=== PATIENT | female | born 2000 | race Caucasian/White ===

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

== ENCOUNTER → 2020-08-25 | Outpatient (CLI) | payer BC | LOC: LABNPT 14:26 | PROVIDERS: ATTEND Family Medicine | DX: Z11.3 Encounter for screening for infections with a predominantly sexual mode of transmission (principal) | CPT/HCPCS: 87491; 87591 ==

== ENCOUNTER 2022-07-15 06:31 | Inpatient (IN) | payer BC, MEDICAID ==
[~2022-07-15] VITALS: Ht 170.2 cm; Wt 101.1 kg
[2022-07-15] VITALS (37 sets, daily range): BP systolic 106–134; BP diastolic 59–84
[2022-07-15] MEDS: D5 LR IV SOLUTION 1,000 ML IV SCH ×3 (07:45→20:58)
[2022-07-15] MEDS ORDERED: D5 LR IV SOLUTION 1,000 ML IV ONE (07:49)
[2022-07-15 07:51] LABS: BASOPHILS % (AUTO) 0 % (0-10); EOSINOPHILS # (AUTO) 0.2 10^3/uL (0.0-0.3); EOSINOPHILS % (AUTO) 2 % (0-10); HEMATOCRIT 36 % (35-52); HEMOGLOBIN 12.1 g/dL (11.5-16.0); LYMPHOCYTES # (AUTO) 1.4 10^3/uL (1.0-4.0); LYMPHOCYTES % (AUTO) 15 % (12-44); MEAN CORPUSCULAR HEMOGLOBIN 31 pg (25-34); MEAN CORPUSCULAR HGB CONC 34 g/dL (32-36); MEAN CORPUSCULAR VOLUME 91 fL (80-99); MEAN PLATELET VOLUME 11.8 fL (9.0-12.2); MONOCYTES # (AUTO) 0.5 10^3/uL (0.0-1.0); MONOCYTES % (AUTO) 6 % (0-12); NEUTROPHILS # (AUTO) 7.2 10^3/uL (1.8-7.8); NEUTROPHILS % (AUTO) 76 % (42-75); PLATELET COUNT 186 10^3/uL (130-400); WHITE BLOOD COUNT 9.5 10^3/uL (4.3-11.0)
--- NOTE | 2022-07-15 07:57 | History & Physical ---
History and Physical Date Seen by Provider: Jul 15, 2022 Time Seen by Provider: 07:53 This patient is a 22-year-old 1 female who presents at 39+ weeks gestation for labor induction. Her has been uncomplicated. She denies rupture membranes or bleeding. She denies contractions. She does feel baby moving. Her GBS culture after 35 weeks gestation was negative. Allergies none Medications are vitamins Medical social and surgical histories are per the antepartum record HEENT exam is normal Neck is supple no lymphadenopathy no thyromegaly Abdomen is gravid soft nontender nondistended Extremities show no clubbing cyanosis. There is no Homans' sign. Pelvic exam is pending Assessment and plan 39+ weeks gestation admitted for elective induction of labor. We anticipate a vaginal delivery but would be prepared for if needed 39 weeks gestation admitted for elective induction of labor Allergies and Home Medications Patient Home Medication List Home Medication List Reviewed: Yes LUIS A JEAN MD Jul 15, 2022 07:57
[2022-07-15] MEDS: OXYTOCIN PRE-MIX DRIP 500 ML IV SCH (08:14)
--- NOTE | 2022-07-15 17:10 | Progress Note ---
Standard Progress Note Progress Notes/Assess & Plan Date Seen by a Provider: Jul 15, 2022 Time Seen by a Provider: 17:07 Progress/Assessment & Plan Patient has been on Pitocin now since about 8 AM. She is on 40 milliunits/min and has been for almost an hour. She has made little or no cervical change through the day. She denies pain she has no complaints denies discharge or bleeding. monitor shows an reactive category 1 heart rate tracing. We discussed stopping the Pitocin to allow her uterus to rest allow her to eat and drink and shower if she like and then resume Pitocin in the morning for day 2 of a serial labor induction.Patient is agreeable with that plan. Vital Signs Date Time Temp Pulse Resp B/P (MAP) Pulse Ox O2 Delivery O2 Flow Rate FiO2 07/15/22 16:15 99 18 119/72 (88) Room Air 07/15/22 16:00 93 18 120/70 (87) Room Air 07/15/22 15:46 95 18 134/72 (92) Room Air 07/15/22 15:30 95 18 117/77 (90) Room Air 07/15/22 15:14 96 18 115/71 (86) Room Air 07/15/22 15:01 36.6 07/15/22 15:00 18 113/72 (86) Room Air 07/15/22 14:45 90 18 117/71 (86) Room Air 07/15/22 14:30 94 18 122/81 (95) Room Air 07/15/22 14:20 81 18 119/80 (93) Room Air 07/15/22 14:01 93 18 113/69 (84) Room Air 07/15/22 13:44 36.5 07/15/22 13:30 95 18 118/74 (89) Room Air 07/15/22 13:15 83 18 117/71 (86) Room Air 07/15/22 13:01 90 18 122/77 (92) Room Air 07/15/22 12:46 83 18 127/75 (92) Room Air 07/15/22 12:30 89 18 122/83 (96) Room Air 07/15/22 12:15 104 18 115/70 (85) Room Air 07/15/22 12:02 85 18 114/68 (83) Room Air 07/15/22 11:46 18 123/83 (96) Room Air 07/15/22 11:30 100 18 114/75 (88) Room Air 07/15/22 11:20 36.6 07/15/22 11:15 102 18 116/76 (89) Room Air 07/15/22 11:00 100 18 116/73 (87) Room Air 07/15/22 10:46 100 18 113/79 (90) Room Air 07/15/22 10:30 96 18 118/70 (86) Room Air 07/15/22 10:17 90 18 121/70 (87) Room Air 07/15/22 10:00 89 18 121/80 (94) Room Air 07/15/22 09:45 79 18 115/71 (86) Room Air 07/15/22 09:30 36.5 100 18 111/72 (85) Room Air 07/15/22 09:15 108 18 109/62 (78) Room Air 07/15/22 09:02 101 18 117/59 (78) Room Air 07/15/22 08:45 97 18 110/69 (83) Room Air 07/15/22 08:30 104 18 113/65 (81) Room Air 07/15/22 08:16 103 18 119/72 (88) Room Air 07/15/22 07:58 36.5 97 18 98 Room Air 07/15/22 07:58 36.5 97 18 122/73 (89) Room Air Vital signs are stable. Patient is afebrile. The abdomen is benign. Cervical exam per the labor and delivery nurse shows a cervix about 1 cm dilated and about 70 or 80% -1-2 station vertex presentation Assessment and plan 39+ weeks gestation on Pitocin now for over 8 hours and on 40 milliunits a minute or approaching an hour. We will stop the Pitocin allow her uterus to rest allow her to eat and drink and rest tonight and then resume Pitocin in the morning for day 2 of a serial labor induction. Patient understands the increasing potential likelihood for with a longer duration of failure to proceed to the active labor. LUIS A JEAN MD Jul 15, 2022 17:09
[2022-07-15] MEDS ORDERED: ACETAMINOPHEN 500 MG TAB (TYLENOL) PO PRN (17:30)
[2022-07-16] VITALS (54 sets, daily range): BP systolic 107–144; BP diastolic 57–90
[2022-07-16] MEDS: OXYTOCIN PRE-MIX DRIP 500 ML IV SCH (06:04)
--- NOTE | 2022-07-16 07:27 | Progress Note ---
Standard Progress Note Progress Notes/Assess & Plan Date Seen by a Provider: Jul 16, 2022 Time Seen by a Provider: 07:24 Progress/Assessment & Plan Patient has been on Pitocin now since about 8 AM. She is on 40 milliunits/min and has been for almost an hour. She has made little or no cervical change through the day. She denies pain she has no complaints denies discharge or bleeding. monitor shows an reactive category 1 heart rate tracing. We discussed stopping the Pitocin to allow her uterus to rest allow her to eat and drink and shower if she like and then resume Pitocin in the morning for day 2 of a serial labor induction.Patient is agreeable with that plan. Vital Signs Date Time Temp Pulse Resp B/P (MAP) Pulse Ox O2 Delivery O2 Flow Rate FiO2 07/15/22 16:15 99 18 119/72 (88) Room Air 07/15/22 16:00 93 18 120/70 (87) Room Air 07/15/22 15:46 95 18 134/72 (92) Room Air 07/15/22 15:30 95 18 117/77 (90) Room Air 07/15/22 15:14 96 18 115/71 (86) Room Air 07/15/22 15:01 36.6 07/15/22 15:00 18 113/72 (86) Room Air 07/15/22 14:45 90 18 117/71 (86) Room Air 07/15/22 14:30 94 18 122/81 (95) Room Air 07/15/22 14:20 81 18 119/80 (93) Room Air 07/15/22 14:01 93 18 113/69 (84) Room Air 07/15/22 13:44 36.5 07/15/22 13:30 95 18 118/74 (89) Room Air 07/15/22 13:15 83 18 117/71 (86) Room Air 07/15/22 13:01 90 18 122/77 (92) Room Air 07/15/22 12:46 83 18 127/75 (92) Room Air 07/15/22 12:30 89 18 122/83 (96) Room Air 07/15/22 12:15 104 18 115/70 (85) Room Air 07/15/22 12:02 85 18 114/68 (83) Room Air 07/15/22 11:46 18 123/83 (96) Room Air 07/15/22 11:30 100 18 114/75 (88) Room Air 07/15/22 11:20 36.6 07/15/22 11:15 102 18 116/76 (89) Room Air 07/15/22 11:00 100 18 116/73 (87) Room Air 07/15/22 10:46 100 18 113/79 (90) Room Air 07/15/22 10:30 96 18 118/70 (86) Room Air 07/15/22 10:17 90 18 121/70 (87) Room Air 07/15/22 10:00 89 18 121/80 (94) Room Air 07/15/22 09:45 79 18 115/71 (86) Room Air 07/15/22 09:30 36.5 100 18 111/72 (85) Room Air 07/15/22 09:15 108 18 109/62 (78) Room Air 07/15/22 09:02 101 18 117/59 (78) Room Air 07/15/22 08:45 97 18 110/69 (83) Room Air 07/15/22 08:30 104 18 113/65 (81) Room Air 07/15/22 08:16 103 18 119/72 (88) Room Air 07/15/22 07:58 36.5 97 18 98 Room Air 07/15/22 07:58 36.5 97 18 122/73 (89) Room Air Vital signs are stable. Patient is afebrile. The abdomen is benign. Cervical exam per the labor and delivery nurse shows a cervix about 1 cm dilated and about 70 or 80% -1-2 station vertex presentation Assessment and plan 39+ weeks gestation on Pitocin now for over 8 hours and on 40 milliunits a minute or approaching an hour. We will stop the Pitocin allow her uterus to rest allow her to eat and drink and rest tonight and then resume Pitocin in the morning for day 2 of a serial labor induction. Patient understands the increasing potential likelihood for with a longer duration of failure to proceed to the active labor. June 15, 2022 Patient is without complaint. She is ambulating, voiding, tolerating oral intake. She is beginning to feel contractions with Pitocin reinitiated at about 6 AM for day 2 of the serial labor induction. Patient is 39+ weeks gestation. She denies rupture membranes or bleeding. She does feel baby moving. Vital Signs Date Time Temp Pulse Resp B/P (MAP) Pulse Ox O2 Delivery O2 Flow Rate FiO2 07/16/22 06:15 84 18 135/84 (101) Room Air 07/16/22 05:40 36.4 80 18 125/89 (101) Room Air 07/16/22 02:10 36.4 96 18 121/66 (84) 07/15/22 21:25 36.2 98 18 126/79 (95) 100 Room Air 07/15/22 17:00 81 18 133/84 (100) Room Air 07/15/22 16:50 36.1 89 18 128/81 (97) Room Air 07/15/22 16:30 81 18 106/66 (79) Room Air 07/15/22 16:15 99 18 119/72 (88) Room Air 07/15/22 16:00 93 18 120/70 (87) Room Air 07/15/22 15:46 95 18 134/72 (92) Room Air 07/15/22 15:30 95 18 117/77 (90) Room Air 07/15/22 15:14 96 18 115/71 (86) Room Air 07/15/22 15:01 36.6 07/15/22 15:00 18 113/72 (86) Room Air 07/15/22 14:45 90 18 117/71 (86) Room Air 07/15/22 14:30 94 18 122/81 (95) Room Air 07/15/22 14:20 81 18 119/80 (93) Room Air 07/15/22 14:01 93 18 113/69 (84) Room Air 07/15/22 13:44 36.5 07/15/22 13:30 95 18 118/74 (89) Room Air 07/15/22 13:15 83 18 117/71 (86) Room Air 07/15/22 13:01 90 18 122/77 (92) Room Air 07/15/22 12:46 83 18 127/75 (92) Room Air 07/15/22 12:30 89 18 122/83 (96) Room Air 07/15/22 12:15 104 18 115/70 (85) Room Air 07/15/22 12:02 85 18 114/68 (83) Room Air 07/15/22 11:46 18 123/83 (96) Room Air 07/15/22 11:30 100 18 114/75 (88) Room Air 07/15/22 11:20 36.6 07/15/22 11:15 102 18 116/76 (89) Room Air 07/15/22 11:00 100 18 116/73 (87) Room Air 07/15/22 10:46 100 18 113/79 (90) Room Air 07/15/22 10:30 96 18 118/70 (86) Room Air 07/15/22 10:17 90 18 121/70 (87) Room Air 07/15/22 10:00 89 18 121/80 (94) Room Air 07/15/22 09:45 79 18 115/71 (86) Room Air 07/15/22 09:30 36.5 100 18 111/72 (85) Room Air 07/15/22 09:15 108 18 109/62 (78) Room Air 07/15/22 09:02 101 18 117/59 (78) Room Air 07/15/22 08:45 97 18 110/69 (83) Room Air 07/15/22 08:30 104 18 113/65 (81) Room Air 07/15/22 08:16 103 18 119/72 (88) Room Air 07/15/22 07:58 36.5 97 18 98 Room Air 07/15/22 07:58 36.5 97 18 122/73 (89) Room Air I & O 07/16/22 07:00 Intake Total 1000 ml Balance 1000 ml Vital signs are stable. Patient is afebrile. The abdomen is gravid soft and nontender Extremities show no clubbing cyanosis. There is no Homans' sign. Pelvic exam per the labor and delivery nurse showed a cervix 1 cm dilated 60 or 70% effaced. Assessment and plan 39+ week admitted yesterday for labor induction. She failed to demonstrate any significant progress in labor in spite of Pitocin for over 8 hours. She has rested now through the night and we will proceed with day 2 of serial labor induction. We anticipate a vaginal delivery but would be prepared for delivery for or maternal indications LUIS A JEAN MD Jul 16, 2022 07:27
[2022-07-16] MEDS ORDERED: DOCU-143 PO (07:47)
[2022-07-16] MEDS ORDERED: IBUP-1780 PO (07:47)
[2022-07-16] MEDS ORDERED: OXYC1TAB12 PO (07:47)
--- NOTE | 2022-07-16 07:48 | Discharge Inst-Surgical ---
Discharge Inst-Surgical Depart Medication/Instructions New, Converted or Re-Newed RX: Transmitted to Pharmacy Consults/Follow Up Patient Instructions: As directed Orders & Referrals Follow Up Appt: RTC 1 week for incision check. Call to make follow up appt. for patient in 4 weeks. Wound Care: Remove petar, apply benzoin and steri strips. Activity Per routine post instructions. Prescriptions for Percocet Motrin and Colace have been transmitted e lectronically to this patient's pharmacy Diet as tolerated Patient may shower or tub bathe as desired. Continue home meds Activity Activity as Tolerated: No Diet Discharge Diet: No Restrictions LUIS A JEAN MD Jul 16, 2022 07:48
[2022-07-16] MEDS: D5 LR IV SOLUTION 1,000 ML IV SCH ×3 (08:00→14:54)
[2022-07-16] MEDS ORDERED: fentaNYL 2 mcg/ml BUPIVA 0.125 100 ML ONE (12:32)
[2022-07-16] MEDS ORDERED: NALOXONE 0.4 MG/ML 1 ML (NARCAN) VIAL IV PRN ×2 (14:00)
[2022-07-16] MEDS ORDERED: diphenhydrAMINE 50 MG/ML INJ (BENADRYL) IV PRN (14:00)
[2022-07-16] MEDS ORDERED: LACTATED RINGERS 1,000 ML IV SCH (14:00)
[2022-07-16] MEDS ORDERED: METOCLOPRAMIDE INJ 10 MG/2 ML (REGLAN) IV PRN (14:00)
[2022-07-16] MEDS ORDERED: ONDANSETRON 4 MG/2 ML (SDV) Z0FRAN IV PRN (14:00)
[2022-07-16] MEDS ORDERED: fentaNYL 2 mcg/ml BUPIVA 0.125 100 ML EPI SCH (14:00)
[2022-07-16] MEDS ORDERED: LIDOCAINE 1% INJ 10 ML VIAL ONE (15:40)
[2022-07-16] MEDS ORDERED: BENZOCAINE/MENTHOL (DERMOPLAST) 56 ML CAN TP PRN (16:15)
[2022-07-16] MEDS ORDERED: TETANUS,DIPTH,PERTUSS P/F (BOOSTRIX) 0.5 ML VIAL IM ONE (16:15)
[2022-07-16] MEDS ORDERED: KETOROLAC 30 MG/ML VIAL IVP PRN (16:15)
[2022-07-16] MEDS ORDERED: oxyCODONE/APAP 5/325MG (PERCOCET 5) TABLET PO PRN (16:15)
[2022-07-16] MEDS ORDERED: OXYTOCIN PRE-MIX DRIP 500 ML IV SCH (16:15)
[2022-07-16] MEDS ORDERED: ONDANSETRON 4 MG/2 ML (SDV) Z0FRAN IVP PRN (16:15)
[2022-07-16] MEDS ORDERED: METHYLERGONOVINE 0.2 MG/ML (METHERGINE) AMP IM ONE (16:30)
[2022-07-16] MEDS ORDERED: METHYLERGONOVINE 0.2 MG/ML (METHERGINE) AMP ONE (16:31)
[2022-07-16] MEDS: KETOROLAC 30 MG/ML VIAL IVP SCH ×2 (17:45→22:59)
[2022-07-16] MEDS: DOCUSATE SODIUM 100 MG (COLACE) CAP PO SCH (20:32)
[2022-07-17 00:35] VITALS: BP 115/74
[2022-07-17 04:16] VITALS: BP 130/84
[2022-07-17] MEDS: KETOROLAC 30 MG/ML VIAL IVP SCH (04:16)
--- NOTE | 2022-07-17 07:03 | OB Labor & Delivery Record ---
Labor & Delivery This patient delivered on July 16, 2002. Patient delivered by term spontaneous vaginal livery at 39+ weeks gestation a viable female with Apgars of 8 and 9 at 1 and 5 respectively weight of 7 pounds 2 ounces and the time of 1540. The infant was bulb suctioned on delivery the head and did not wish that the repeat umbilical cord was doubly clamped the father cut the cord the baby was passed to mom's abdomen. Cord bloods were obtained placenta delivered spontaneously Neha and was normal with a three-vessel cord. The cervix vagina rectum perineum were examined and found intact. Blood loss was around 250 cc. Sponge needle counts were correct on completion of the procedure. Patient tolerated procedure well remained in the LDR for recovery the baby remained with the mom. LUIS A JEAN MD Jul 17, 2022 07:03
--- NOTE | 2022-07-17 07:04 | Progress Note ---
Standard Progress Note Progress Notes/Assess & Plan Date Seen by a Provider: Jul 17, 2022 Time Seen by a Provider: 07:03 Progress/Assessment & Plan Patient has been on Pitocin now since about 8 AM. She is on 40 milliunits/min and has been for almost an hour. She has made little or no cervical change through the day. She denies pain she has no complaints denies discharge or bleeding. monitor shows an reactive category 1 heart rate tracing. We discussed stopping the Pitocin to allow her uterus to rest allow her to eat and drink and shower if she like and then resume Pitocin in the morning for day 2 of a serial labor induction.Patient is agreeable with that plan. Vital Signs Date Time Temp Pulse Resp B/P (MAP) Pulse Ox O2 Delivery O2 Flow Rate FiO2 07/15/22 16:15 99 18 119/72 (88) Room Air 07/15/22 16:00 93 18 120/70 (87) Room Air 07/15/22 15:46 95 18 134/72 (92) Room Air 07/15/22 15:30 95 18 117/77 (90) Room Air 07/15/22 15:14 96 18 115/71 (86) Room Air 07/15/22 15:01 36.6 07/15/22 15:00 18 113/72 (86) Room Air 07/15/22 14:45 90 18 117/71 (86) Room Air 07/15/22 14:30 94 18 122/81 (95) Room Air 07/15/22 14:20 81 18 119/80 (93) Room Air 07/15/22 14:01 93 18 113/69 (84) Room Air 07/15/22 13:44 36.5 07/15/22 13:30 95 18 118/74 (89) Room Air 07/15/22 13:15 83 18 117/71 (86) Room Air 07/15/22 13:01 90 18 122/77 (92) Room Air 07/15/22 12:46 83 18 127/75 (92) Room Air 07/15/22 12:30 89 18 122/83 (96) Room Air 07/15/22 12:15 104 18 115/70 (85) Room Air 07/15/22 12:02 85 18 114/68 (83) Room Air 07/15/22 11:46 18 123/83 (96) Room Air 07/15/22 11:30 100 18 114/75 (88) Room Air 07/15/22 11:20 36.6 07/15/22 11:15 102 18 116/76 (89) Room Air 07/15/22 11:00 100 18 116/73 (87) Room Air 07/15/22 10:46 100 18 113/79 (90) Room Air 07/15/22 10:30 96 18 118/70 (86) Room Air 07/15/22 10:17 90 18 121/70 (87) Room Air 07/15/22 10:00 89 18 121/80 (94) Room Air 07/15/22 09:45 79 18 115/71 (86) Room Air 07/15/22 09:30 36.5 100 18 111/72 (85) Room Air 07/15/22 09:15 108 18 109/62 (78) Room Air 07/15/22 09:02 101 18 117/59 (78) Room Air 07/15/22 08:45 97 18 110/69 (83) Room Air 07/15/22 08:30 104 18 113/65 (81) Room Air 07/15/22 08:16 103 18 119/72 (88) Room Air 07/15/22 07:58 36.5 97 18 98 Room Air 07/15/22 07:58 36.5 97 18 122/73 (89) Room Air Vital signs are stable. Patient is afebrile. The abdomen is benign. Cervical exam per the labor and delivery nurse shows a cervix about 1 cm dilated and about 70 or 80% -1-2 station vertex presentation Assessment and plan 39+ weeks gestation on Pitocin now for over 8 hours and on 40 milliunits a minute or approaching an hour. We will stop the Pitocin allow her uterus to rest allow her to eat and drink and rest tonight and then resume Pitocin in the morning for day 2 of a serial labor induction. Patient understands the increasing potential likelihood for with a longer duration of failure to proceed to the active labor. June 15, 2022 Patient is without complaint. She is ambulating, voiding, tolerating oral intake. She is beginning to feel contractions with Pitocin reinitiated at about 6 AM for day 2 of the serial labor induction. Patient is 39+ weeks gestation. She denies rupture membranes or bleeding. She does feel baby moving. Vital Signs Date Time Temp Pulse Resp B/P (MAP) Pulse Ox O2 Delivery O2 Flow Rate FiO2 07/16/22 06:15 84 18 135/84 (101) Room Air 07/16/22 05:40 36.4 80 18 125/89 (101) Room Air 07/16/22 02:10 36.4 96 18 121/66 (84) 07/15/22 21:25 36.2 98 18 126/79 (95) 100 Room Air 07/15/22 17:00 81 18 133/84 (100) Room Air 07/15/22 16:50 36.1 89 18 128/81 (97) Room Air 07/15/22 16:30 81 18 106/66 (79) Room Air 07/15/22 16:15 99 18 119/72 (88) Room Air 07/15/22 16:00 93 18 120/70 (87) Room Air 07/15/22 15:46 95 18 134/72 (92) Room Air 07/15/22 15:30 95 18 117/77 (90) Room Air 07/15/22 15:14 96 18 115/71 (86) Room Air 07/15/22 15:01 36.6 07/15/22 15:00 18 113/72 (86) Room Air 07/15/22 14:45 90 18 117/71 (86) Room Air 07/15/22 14:30 94 18 122/81 (95) Room Air 07/15/22 14:20 81 18 119/80 (93) Room Air 07/15/22 14:01 93 18 113/69 (84) Room Air 07/15/22 13:44 36.5 07/15/22 13:30 95 18 118/74 (89) Room Air 07/15/22 13:15 83 18 117/71 (86) Room Air 07/15/22 13:01 90 18 122/77 (92) Room Air 07/15/22 12:46 83 18 127/75 (92) Room Air 07/15/22 12:30 89 18 122/83 (96) Room Air 07/15/22 12:15 104 18 115/70 (85) Room Air 07/15/22 12:02 85 18 114/68 (83) Room Air 07/15/22 11:46 18 123/83 (96) Room Air 07/15/22 11:30 100 18 114/75 (88) Room Air 07/15/22 11:20 36.6 07/15/22 11:15 102 18 116/76 (89) Room Air 07/15/22 11:00 100 18 116/73 (87) Room Air 07/15/22 10:46 100 18 113/79 (90) Room Air 07/15/22 10:30 96 18 118/70 (86) Room Air 07/15/22 10:17 90 18 121/70 (87) Room Air 07/15/22 10:00 89 18 121/80 (94) Room Air 07/15/22 09:45 79 18 115/71 (86) Room Air 07/15/22 09:30 36.5 100 18 111/72 (85) Room Air 07/15/22 09:15 108 18 109/62 (78) Room Air 07/15/22 09:02 101 18 117/59 (78) Room Air 07/15/22 08:45 97 18 110/69 (83) Room Air 07/15/22 08:30 104 18 113/65 (81) Room Air 07/15/22 08:16 103 18 119/72 (88) Room Air 07/15/22 07:58 36.5 97 18 98 Room Air 07/15/22 07:58 36.5 97 18 122/73 (89) Room Air I & O 07/16/22 07:00 Intake Total 1000 ml Balance 1000 ml Vital signs are stable. Patient is afebrile. The abdomen is gravid soft and nontender Extremities show no clubbing cyanosis. There is no Homans' sign. Pelvic exam per the labor and delivery nurse showed a cervix 1 cm dilated 60 or 70% effaced. Assessment and plan 39+ week admitted yesterday for labor induction. She failed to demonstrate any significant progress in labor in spite of Pitocin for over 8 hours. She has rested now through the night and we will proceed with day 2 of serial labor induction. We anticipate a vaginal delivery but would be prepared for delivery for or maternal indications July 17, 2022 Patient is without complaint. She is ambulating, voiding, tolerating oral intake well and has good pain control. She is requesting discharge home. Vital Signs Date Time Temp Pulse Resp B/P (MAP) Pulse Ox O2 Delivery O2 Flow Rate FiO2 07/17/22 04:16 36.2 89 18 130/84 (99) 100 Room Air 07/17/22 00:35 36.4 98 18 115/74 (88) 100 Room Air 07/16/22 20:32 36.6 100 18 131/79 (96) 100 Room Air 07/16/22 17:26 81 18 113/59 (77) Room Air 07/16/22 17:11 68 18 130/63 (85) Room Air 07/16/22 16:57 36.1 86 18 123/76 (92) Room Air 07/16/22 16:41 86 18 118/70 (86) Room Air 07/16/22 16:26 79 18 119/64 (82) Room Air 07/16/22 16:11 93 18 113/61 (78) Room Air 07/16/22 15:58 36.0 85 18 117/67 (84) Room Air 07/16/22 15:41 118 18 107/70 (82) Room Air 07/16/22 15:30 94 18 124/77 (93) 100 Room Air 07/16/22 15:15 89 18 125/77 (93) 100 Room Air 07/16/22 15:00 84 18 122/72 (89) 100 Room Air 07/16/22 14:45 74 18 113/64 (80) 100 Room Air 07/16/22 14:30 36.0 86 18 120/77 (91) 100 Room Air 07/16/22 14:15 93 18 126/74 (91) 100 Room Air 07/16/22 14:10 94 18 133/89 (104) 100 Room Air 07/16/22 14:08 70 18 123/63 (83) 100 Room Air 07/16/22 14:06 70 18 123/63 (83) 100 Room Air 07/16/22 14:03 109 18 121/57 (78) 100 Room Air 07/16/22 14:00 103 18 117/61 (79) 100 Room Air 07/16/22 13:58 80 18 128/67 (87) 100 Room Air 07/16/22 13:56 98 18 122/67 (85) 100 Room Air 07/16/22 13:53 112 18 144/65 (91) 100 Room Air 07/16/22 13:50 104 18 136/62 (86) 100 Room Air 07/16/22 13:45 85 18 141/74 (96) 99 Room Air 07/16/22 13:40 83 18 135/64 (87) 100 Room Air 07/16/22 13:35 96 18 140/87 (104) 99 Room Air 07/16/22 13:30 82 18 131/76 (94) 99 Room Air 07/16/22 13:15 82 18 130/67 (88) Room Air 07/16/22 13:00 Room Air 07/16/22 12:45 88 18 132/86 (101) Room Air 07/16/22 12:30 83 18 134/78 (96) Room Air 07/16/22 12:15 90 18 130/75 (93) Room Air 07/16/22 12:00 87 18 136/90 (105) Room Air 07/16/22 11:45 36.6 87 18 120/74 (89) Room Air 07/16/22 11:30 102 18 134/74 (94) Room Air 07/16/22 11:15 104 18 140/74 (96) Room Air 07/16/22 11:00 90 18 117/79 (92) Room Air 07/16/22 10:45 Room Air 07/16/22 10:30 109 18 126/82 (97) Room Air 07/16/22 10:15 98 18 130/78 (95) Room Air 07/16/22 10:00 103 18 127/80 (96) Room Air 07/16/22 09:45 103 18 121/79 (93) Room Air 07/16/22 09:30 99 18 113/74 (87) Room Air 07/16/22 09:15 94 18 109/76 (87) Room Air 07/16/22 09:15 36.3 Room Air 07/16/22 09:00 91 18 109/59 (76) Room Air 07/16/22 08:30 94 18 125/79 (94) Room Air 07/16/22 08:15 90 18 121/80 (94) Room Air 07/16/22 07:45 Room Air 07/16/22 07:30 88 18 126/83 (97) Room Air 07/16/22 07:15 36.1 100 18 123/85 (98) Room Air I & O 07/17/22 07:00 Intake Total 3500 ml Balance 3500 ml Vital signs are stable. Patient is afebrile. The abdomen is benign. The fundus is firm below the umbilicus and nontender. Extremities show no clubbing or cyanosis. No Homans' sign. Pelvic exam is deferred Assessment and plan day #1 status post term spontaneous vaginal livery doing well. Plans for routine convalescent care with discharge home today or tomorrow as patient prefers Final Diagnosis 39-week spontaneous vaginal delivery LUIS A JEAN MD Jul 17, 2022 07:04
[2022-07-17] MEDS ORDERED: OXYC-199 PO (07:06)
[2022-07-17] MEDS ORDERED: IBUP-1780 PO (07:06)
--- NOTE | 2022-07-17 07:07 | Discharge Inst-Surgical ---
Discharge Inst-Surgical Depart Medication/Instructions New, Converted or Re-Newed RX: Transmitted to Pharmacy Consults/Follow Up Patient Instructions: As directed Orders & Referrals Follow Up Appt: Call to make follow up appt. for patient in 4 weeks. Activity Per routine post vaginal delivery instructions. Please call in RX to patient pharmacy. Diet as tolerated Patient may shower or tub bathe as desired. Activity Activity as Tolerated: No Diet Discharge Diet: No Restrictions LUIS A JEAN MD Jul 17, 2022 07:07
[2022-07-17 08:52] VITALS: BP 124/82
[2022-07-17] MEDS: DOCUSATE SODIUM 100 MG (COLACE) CAP PO SCH (08:56)
[2022-07-17] MEDS ORDERED: MEASLES,MUMPS,RUBELLA 1 EA INJ SC ONE (11:00)
[2022-07-17] MEDS: IBUPROFEN 800 MG (MOTRIN) TAB PO SCH ×2 (11:19→16:36)
[2022-07-17 11:54] VITALS: BP 122/76
--- NOTE | 2022-07-17 12:41 | Anesthesia-Regional Post-Op ---
Regional Patient Condition Mental Status: Alert, Oriented x3 Circulation: Same as Pre-Op Headache: Absent Sensation: Full Recovery Motor Block: Absent Post Op Complications Complications None Follow Up Care/Instructions Patient Instructions None needed. Anesthesia/Patient Condition Patient is doing well, no complaints, stable vital signs, no apparent adverse anesthesia problems. No complications reported per nursing. ELIZABETH BLANCAS DO Jul 17, 2022 12:40
[2022-07-17] MEDS ORDERED: MEASLES,MUMPS,RUBELLA 1 EA INJ ONE (14:01)
[2022-07-17 16:35] VITALS: BP 130/84
[2022-07-17] MEDS ORDERED: IBUPROFEN 800 MG (MOTRIN) TAB PO SCH (17:00)
[2022-07-17 17:40] VITALS: BP 130/84
== END 2022-07-17 17:40 | disposition home or self-care (01) | DRG 807 ==
LOC: LDRP 06:31
PROVIDERS: ADMIT Obstetrics & Gynecology; ATTEND Obstetrics & Gynecology
PROC: 10E0XZZ Delivery of Products of Conception, External Approach (ICD-10-PCS; principal; 2022-07-16)
PROC: 3E033VJ Introduction of Other Hormone into Peripheral Vein, Percutaneous Approach (ICD-10-PCS; 2022-07-16)
DX: O80 Encounter for full-term uncomplicated delivery (principal); Z37.0 Single live birth; Z3A.39 39 weeks gestation of pregnancy
CPT/HCPCS: 36415; 85025; 86850; 86900; 86901; 90707